=== PATIENT | female | born 1950 | race Caucasian/White ===

== ENCOUNTER 2018-07-08 08:45 | Outpatient (CLI) | payer MEDICARE ==
[~2018-07-08] VITALS: Ht 186.7 cm; Wt 99.8 kg
[~2018-07-08 08:45] MED LIST: ALBU18HF2 INH
[2018-07-08 09:20] LABS: ABG BASE EXCESS 0.8 mmol/L (-2.0-3.0); ABG HCO3 25.7 mmol/L (22.0-26.0); ABG OXYGEN SATURATION 95.2 % (95-98); ABG PCO2 (T) 41.8 mmHg (32.0-45.0); ABG PH (T) 7.406 (7.350-7.450); ABG PO2 (T) 81.6 mmHg (83-108); ALLEN'S TEST Positive; FCOHb 0.5 % (0.5-1.5); FMetHb 0.3 % (0.3-1.12); FO2Hb 94.4 % (94-100); TOTAL HEMOGLOBIN 13.6 G/dl (12.0-16.0)
[2018-07-08] MEDS ORDERED: albuterol 2.5 MG/3 ML nebule NEB ONE (09:45)
== END 2018-07-08 23:59 | disposition home or self-care (01) ==
LOC: RT 08:45
PROVIDERS: ATTEND Family Medicine
DX: J98.4 Other disorders of lung (principal); R09.02 Hypoxemia; R06.00 Dyspnea, unspecified; R05 Cough; J45.909 Unspecified asthma, uncomplicated; Z79.84 Long term (current) use of oral hypoglycemic drugs; Z88.8 Allergy status to other drugs, medicaments and biological substances
CPT/HCPCS: 36600; 82803; 85018; 94060; 94727; 94729; 94760

== ENCOUNTER 2021-09-17 11:07 | Emergency (ER) | payer MEDICARE, BC ==
[~2021-09-17] VITALS: Ht 154.9 cm; Wt 104.0 kg
[2021-09-17 13:36] LABS: BASOPHILS % (AUTO) 0.7 % (0-1); EOSINOPHILS # (AUTO) 0.2 X10'3 (0-0.9); HEMATOCRIT 43.9 % (35.0-45.0); HEMOGLOBIN 14.6 g/dl (12.0-16.0); LYMPHOCYTES # (AUTO) 2.1 X10'3 (1.1-4.8); LYMPHOCYTES % (AUTO) 32.3 % (21-51); MEAN CORPUSCULAR HEMOGLOBIN 30.5 PG (27.0-31.0); MEAN CORPUSCULAR HGB CONC 33.3 g/dL (33.0-36.5); MEAN CORPUSCULAR VOLUME 91.5 FL (78-98); MEAN PLATELET VOLUME 8.2 FL (7.4-10.4); MONOCYTES # (AUTO) 0.6 X10'3 (0-0.9); MONOCYTES % (AUTO) 9.1 % (2-12); NEUTROPHILS # (AUTO) 3.6 X10'3 (1.8-7.7); NEUTROPHILS % (AUTO) 54.9 % (42-75); PLATELET COUNT 204 X10'3 (140-440); RED CELL DISTRIBUTION WIDTH 13.9 % (11.5-14.5); WHITE BLOOD COUNT 6.6 X10'3 (4.5-11.0)
[2021-09-17 13:55] LABS: ALANINE AMINOTRANSFERASE 69 U/L (12-78); ALBUMIN 3.5 G/DL (3.4-5.0); ALBUMIN/GLOBULIN RATIO 0.8 (1.1-1.5); ALKALINE PHOSPHATASE 90 IU/L (46-116); ANION GAP 6 (8-16); ASPARTATE AMINO TRANSFERASE 42 U/L (10-37); BILIRUBIN,TOTAL 0.4 MG/DL (0.1-1.0); BLOOD UREA NITROGEN 33 MG/DL (7-18); BUN/CREATININE RATIO 63.5 (6.6-38.0); CALCIUM 10.2 MG/DL (8.5-10.1); CHLORIDE 103 MMOL/L (99-107); CREATININE 0.52 MG/DL (0.40-0.90); GLUCOSE 151 MG/DL (70-104); POTASSIUM 4.6 MMOL/L (3.5-5.1); SODIUM 139 MMOL/L (135-145); TOTAL CARBON DIOXIDE 29.7 MMOL/L (24-32); eGFR > 90 ML/MIN
[2021-09-17] MEDS ORDERED: metoprolol tartrate 1mg/ml inj IV ONE (16:35)
[2021-09-17 16:49] VITALS: BP_DIAS 101
[2021-09-17 17:25] VITALS: BP_SYST 120
== END 2021-09-17 17:43 | disposition home or self-care (01) ==
LOC: ER 11:08
DX: I48.0 Paroxysmal atrial fibrillation (principal); I10 Essential (primary) hypertension; Z86.16 Personal history of COVID-19
CPT/HCPCS: 36415; 71045; 80053; 83880; 84484; 85025; 93005; 99285